=== PATIENT | female | born 1960 | race Asian ===

== ENCOUNTER 2019-06-18 09:26 | Outpatient (CLI) | payer OTHER ==
--- NOTE | 2019-06-18 09:51 | RAD ---
EXAM: Chest 2 views: HISTORY: Cough. TB screening. COMPARISON: None. FINDINGS: There is a normal-sized cardiomediastinal silhouette. Atherosclerotic calcifications are seen in the aorta. There is no evidence of consolidation, mass, or pleural effusion. The bones are unremarkable. IMPRESSION: No evidence of acute cardiopulmonary disease
== END 2019-06-18 09:27 | disposition home or self-care (01) ==
LOC: BICRAD 09:26
PROVIDERS: ATTEND Internal Medicine Nephrology
DX: Z11.1 Encounter for screening for respiratory tuberculosis (principal)
CPT/HCPCS: 71046